=== PATIENT | female | born 1960 | race Caucasian/White ===

== ENCOUNTER 2024-04-08 20:53 | Emergency (ER) | payer OTHER, SELFPAY ==
[2024-04-08 21:24] LABS: Absolute Lymphocytes (CBC) 1.9 K/uL (0.7-4.9); Absolute Monocytes 0.6 K/uL (0.1-1.3); Absolute Neutrophil 6.7 K/uL (1.8-8.0); Basophils % 0.3 % (0-1.3); Hematocrit 39.5 % (36.0-45.0); Lymphocytes % 20.9 % (15.3-44.8); MCH 29.9 pg (27.0-35.0); MCHC 32.9 g/dL (32.0-36.0); MCV 90.8 fL (80-100); MPV 8.9 fL (7.6-11.3); Monocytes % 6.2 % (3.3-12.3); Neutrophils % 72.6 % (41.7-73.7); Platelets 217 thou/uL (152-406); RBC Red Blood Cell Count 4.35 M/uL (3.86-4.86); Red Cell Distribution Width 13.5 % (12.1-15.2)
[2024-04-08 21:28] LABS: PT Prothrombin Time 11.4 SECONDS (9.4-12.5); PTT, Activated Partial Thromb 31.6 SECONDS (24.3-36.9); Protime INR 1.02
[2024-04-08 21:41] LABS: ALT/SGPT 19 U/L (13-56); AST/SGOT 13 U/L (15-37); Albumin 3.9 g/dL (3.4-5.0); Albumin/Globulin Ratio 1.1 (1.1-1.8); Alkaline Phosphatase 97 U/L (45-117); Anion Gap 9.6 mEq/L (5.0-15.0); BUN Blood Urea Nitrogen 29 mg/dL (7-18); Bicarbonate 25 mEq/L (21-32); Bilirubin Direct 0.2 mg/dL (0-0.2); Bilirubin Indirect, Calculated 0.5 mg/dL (0.2-0.8); Bilirubin Total 0.7 mg/dL (0.2-1.0); Creatine Phosphokinase 55 U/L (26-192); Globulin 3.4 g/dL (2.3-3.5); Glomerular Filtration Rate 40 ml/min (=/>90); Glucose Level 160 mg/dL (74-106); Magnesium 1.7 mg/dL (1.6-2.4); Potassium 3.6 mEq/L (3.5-5.1); Protein, Total 7.3 g/dL (6.4-8.2); Sodium Level 141 mEq/L (136-145)
[2024-04-08] MEDS ORDERED: KCL 20 MEQ/100 mL IVPB 200 ML IV ONE (23:19)
[2024-04-08] MEDS ORDERED: MAGNESIUM SULFATE 1 gm IVPB 1 GM/100 ML BAG IV ONE (23:19)
--- NOTE | 2024-04-09 00:55 | EDPHYS ---
Physician Documentation [facility] Name: Yumi Wellington Age: 63 yrs Sex: Female : 1960 Arrival Date: 04/08/2024 Time: 20:53 Bed 16 Private MD: ED Physician Matt Falcon HPI: 04/08 21:09 This 63 yrs old Female presents to ER via Unassigned with complaints of Possible ms3 Overdose, Suicidal Ideation. 21:09 63-year-old female with past medical history of hypertension, depression, diabetes ms3 presents to the emergency department via [facility] status post medication overdose. Patient took 2 mostly full bottles of hydroxyzine and atorvastatin. When asked when she took the medications patient states "recently." Per EMS patient had multiple bouts of emesis prior to their arrival and on arrival. Patient states she was trying to harm herself due to issues with her .. Historical: - Allergies: 22:30 No Known Allergies; dd2 - PMHx: 22:30 Diabetes mellitus; Hypertensive disorder; Depressive disorder; Anxiety; dd2 - Immunization history:: Adult Immunizations unknown. - Infectious Disease History:: Denies. - Social history:: Smoking status: Patient denies any tobacco usage or history of. ROS: 21:09 Constitutional: Negative for fever, and chills. Neck: Negative for injury, pain, and ms3 swelling, Cardiovascular: Negative for chest pain, and palpitations. Respiratory: Negative for shortness of breath, cough, wheezing, and pleuritic chest pain, MS/Extremity: Negative for injury and deformity, Skin: Negative for injury, rash, and discoloration, Neuro: Negative for headache, weakness, numbness, tingling. 21:09 Abdomen/GI: Positive for nausea and vomiting, ms3 21:09 Psych: Positive for depression, suicide gesture, Exam: 21:16 Constitutional: This is a well developed, well nourished patient who is awake, alert, ms3 and in no acute distress. Head/Face: Normocephalic, atraumatic. Chest/axilla: Normal chest wall appearance and motion. Nontender with no deformity. Cardiovascular: Regular rate and rhythm with a normal S1 and S2. No gallops, murmurs, or rubs. Normal PMI, no JVD. No pulse deficits. Respiratory: Lungs have equal breath sounds bilaterally, clear to auscultation and percussion. No rales, rhonchi or wheezes noted. No increased work of breathing, no retractions or nasal flaring. Abdomen/GI: Soft, non-tender, with normal bowel sounds. No distension or tympany. No guarding or rebound. No evidence of tenderness throughout. Skin: Warm, dry with normal turgor. Normal color with no rashes, no lesions, and no evidence of cellulitis. MS/ Extremity: Pulses equal, no cyanosis. Neurovascular intact. Full, normal range of motion. Neuro: Awake and alert, GCS 15, oriented to person, place, time, and situation. Cranial nerves II-XII grossly intact. Motor strength 5/5 in all extremities. Sensory grossly intact. Cerebellar exam normal. Normal gait. 21:16 Psych: Behavior/mood is cooperative, depressed, Affect is calm, Patient having thoughts of suicide. Overdose with hydroxyzine 21:37 ECG was reviewed by the Attending Physician. ms3 22:28 ECG was reviewed by the Attending Physician. ms3 Vital Signs: 20:53 BP 162 / 82; Pulse 81; Pulse Ox 98% ; Weight 77.11 kg; vc1 21:16 BP 162 / 80; Pulse 76; Resp 21; Pulse Ox 98% ; dd2 21:30 BP 143 / 83; Pulse 71; Resp 12; Pulse Ox 100% on R/A; al5 22:00 BP 146 / 90; Pulse 76; Resp 25; Pulse Ox 100% on R/A; al5 22:30 BP 149 / 79; Pulse 68; Resp 14; Pulse Ox 100% ; dd2 22:45 BP 148 / 78; Pulse 66; Resp 17; Pulse Ox 100% on R/A; al5 23:00 BP 135 / 75; Pulse 66; Resp 16; Pulse Ox 99% on R/A; al5 23:15 BP 139 / 84; Pulse 67; Resp 14; Pulse Ox 100% on R/A; al5 23:25 BP 140 / 76; Pulse 67; Resp 16; Pulse Ox 100% on R/A; al5 04/09 00:00 BP 152 / 78; Pulse 74; Resp 15; Pulse Ox 100% on R/A; al5 01:00 BP 152 / 79; Pulse 72; Resp 14; Pulse Ox 100% on R/A; al5 02:00 BP 153 / 74; Pulse 74; Resp 20; Pulse Ox 100% on R/A; al5 03:00 BP 146 / 81; Pulse 71; Resp 15; Temp 98.2; Pulse Ox 100% ; dd2 04:00 BP 123 / 77; Pulse 73; Resp 18; Pulse Ox 100% on R/A; al5 05:00 BP 125 / 76; Pulse 72; Resp 15; Pulse Ox 99% on R/A; al5 06:00 BP 134 / 77; Pulse 76; Resp 17; Pulse Ox 100% on R/A; al5 07:00 BP 138 / 65; Pulse 76; Resp 18; Pulse Ox 100% on R/A; ph 08:00 BP 133 / 63; Pulse 76; Resp 18; Pulse Ox 98% on R/A; ph 12:00 BP 158 / 85; Pulse 74; Resp 18; Temp 97.9; Pulse Ox 99% on R/A; ph / 07:01 BP 152 / 85; Pulse 65; Resp 18; Pulse Ox 98% on R/A; oe 07:07 BP 157 / 79; Pulse 66; Resp 16; Pulse Ox 99% on R/A; mb9 12:40 BP 155 / 70; Pulse 82; Resp 18; Pulse Ox 99% on R/A; mb9 Michael Coma Score: 04/08 22:30 Eye Response: spontaneous(4). Motor Response: obeys commands(6). Verbal Response: dd2 oriented(5). Total: 15. MDM: 21:16 Differential diagnosis: Ingestion/exposure to Hydroxyzine/ Atorvastatin Rhabdomyolysis ms3 vs Arrhythmia. ED course: Poison control contacted by Eladia. Recommend magnesium greater than 2 and potassium greater than 4 secondary to QT prolongation. With Hydoxyzine overdose watch for WRS widening and if QRS greater than 110 recommend sodium bicarb. Patient may also exhibit tachycardia, agitation, seizures. Treatment Benzos. Patient may have GI upset or rhabdo from Atorvastatin overdose. Poison control will call back in 2 hours for update. Case # [id number]. 21:19 Medical Screening Exam initiated ms3 04/09 01:05 Data reviewed: vital signs, nurses notes, lab test result(s), and as a result, I will ms3 transfer. Consideration of Admission/Observation Transfer patient. I considered the following discharge prescriptions or medication management in the emergency department Medications were administered in the Emergency Department. See MAR. Independent interpretation of the following test(s) in the Emergency Department EKG: See my EKG interpretation above register of deeds: rate is 71 beats/min, Rhythm is normal sinus rhythm, with no ectopy, Interpretation: normal rate, normal rhythm. Historians other than the Patient: EMS: [facility]. Counseling: I had a detailed discussion with the patient and/or guardian regarding the historical points, exam findings, and any diagnostic results supporting the discharge/admit diagnosis, lab results, the need to transfer to another facility, [facility] does not immediately have the required specialist. 04/08 21:09 Order name: Acetaminophen; Complete Time: 21:49 ms3 04/08 21:09 Order name: BMP; Complete Time: 21:49 ms3 04/08 21:09 Order name: CBC with Diff; Complete Time: 21:49 ms3 04/08 21:09 Order name: Ethanol; Complete Time: 21:49 ms3 04/08 21:09 Order name: Hepatic Function; Complete Time: 21:49 ms3 04/08 21:09 Order name: Protime (+inr); Complete Time: 21:49 ms3 04/08 21:09 Order name: Ptt, Activated; Complete Time: 21:49 ms3 04/08 21:09 Order name: Salicylate; Complete Time: 22:18 ms3 04/08 21:09 Order name: Urine Drug Screen; Complete Time: 02:16 ms3 04/08 21:09 Order name: CK; Complete Time: 21:49 ms3 04/08 21:23 Order name: Magnesium; Complete Time: 21:49 EDMS 04/09 10:38 Order name: Glucose, Ancillary Testing; Complete Time: 10:38 EDMS 04/08 21:09 Order name: EKG; Complete Time: 21:09 ms3 04/09 10:35 Order name: EKG Electrocardiogram EDMS 04/08 21:09 Order name: EKG - Nurse/Tech; Complete Time: 21:14 ms3 04/08 21:09 Order name: IV Saline Lock; Complete Time: 21:14 ms3 04/08 21:09 Order name: Labs collected and sent; Complete Time: 21:14 ms3 04/08 21:09 Order name: O2 Per Protocol; Complete Time: 21:14 ms3 04/08 21:09 Order name: O2 Sat Monitoring; Complete Time: 21:14 ms3 04/08 21:09 Order name: Suicide Screening ([place]); Complete Time: 22:54 ms3 04/08 21:27 Order name: Seizure Precautions; Complete Time: 22:54 vc1 04/08 21:38 Order name: Misc. Order: repeat EKG at 2230; Complete Time: 22:54 vc1 EC/20 21:37 Rate is 82 beats/min. Rhythm is regular. QRS [place] is Normal. LA interval is normal. QRS ms3 interval is normal. QT interval is prolonged. Clinical impression: Normal ECG and prolonged QT. Interpreted by me. Reviewed by me. 22:28 Rate is 70 beats/min. Rhythm is regular. QRS [place] is Normal. LA interval is normal. QRS ms3 interval is normal. QT interval is normal. Clinical impression: NSR w/ Non-specific ST/T Changes. Interpreted by me. Reviewed by me. Administered Medications: 23:40 Drug: Potassium Chloride IV 40 mEq IV at calculated rate once; administer over 2-4 dd2 hours Route: IV; Rate: calculated rate; Site: left antecubital; 23:55 Follow up: Response: No adverse reaction 04/09 01:31 Follow up: Response: No adverse reaction; IV Status: Completed infusion; IV Intake: dd2 100ml 03:33 Follow up: Response: No adverse reaction; IV Status: Completed infusion; IV Intake: vc1 100ml 04/08 23:40 Drug: Magnesium Sulfate IVPB 1 grams IVPB once over 1 hrs Route: IVPB; Infused Over: 1 dd2 hrs; Site: left antecubital; 23:55 Follow up: Response: No adverse reaction dd2 04/09 00:36 Follow up: Response: No adverse reaction; IV Status: Completed infusion; IV Intake: dd2 100ml Disposition Summary: 04/09/24 00:54 Transfer Ordered Notes: Transfer Location: [facility] ms3 Reason: Higher level of care ms3 Condition: Stable ms3 Problem: new ms3 Symptoms: are unchanged ms3 Accepting Physician: (04/10/24 12:57) mb9 Diagnosis - Suicide attempt ms3 - Depression ms3 Forms: - Medication Reconciliation Form ms3 - SBAR form ms3 Critical care time excluding procedures: 04/08 22:54 Critical care time: Bedside Care: 45 minutes, Consultation: 5 minutes, Family ms3 Intervention: 10 minutes. Total time: 60 minutes Signatures: Dispatcher [employer] EDMS Matt Falcon, DO ms3 Eladia Camara, RN RN vc1 Alesia, Ellen Veras, RN RN mb9 SUSAN DE LA TORRE RN RN dd2 Corrections: (The following items were deleted from the chart) 21: 21:09 ACETAMINOPHEN+C.LAB.BRZ ordered. EDMS EDMS 21: 21:09 BASIC METABOLIC PANEL+C.LAB.BRZ ordered. EDMS EDMS 21: 21:09 CBC+H.LAB.BRZ ordered. EDMS EDMS 21: 21:09 ETHANOL+C.LAB.BRZ ordered. EDMS EDMS 21: 21:09 HEPATIC FUNCTION+C.LAB.BRZ ordered. EDMS EDMS 21: 21:09 PROTIME (+INR)+COAG.LAB.BRZ ordered. EDMS EDMS 21: 21:09 PTT, ACTIVATED+COAG.LAB.BRZ ordered. EDMS EDMS 21: 21:09 SALICYLATE+C.LAB.BRZ ordered. EDMS EDMS 21: 21:09 URINE DRUG SCREEN+UC.LAB.BRZ ordered. EDMS EDMS 21: 21:09 CREATINE PHOSPHOKINASE+C.LAB.BRZ ordered. EDMS EDMS 21:15 21:09 Constitutional: Negative for fever, and chills. Neck: Negative for injury, pain, ms3 and swelling, Cardiovascular: Negative for chest pain, and palpitations. Respiratory: Negative for shortness of breath, cough, wheezing, and pleuritic chest pain, Abdomen/GI: Negative for abdominal pain, nausea, vomiting, diarrhea, and constipation, MS/Extremity: Negative for injury and deformity, Skin: Negative for injury, rash, and discoloration, Neuro: Negative for headache, weakness, numbness, tingling. ms3 : 21:15 MAGNESIUM+C.LAB.BRZ ordered. EDMS EDMS 04/10 12:57 04/09 00:54 Dr [email or web address]
--- NOTE | 2024-04-09 00:55 | ER ---
Nurse's Notes [facility] Name: Yumi Wellington Age: 63 yrs Sex: Female : 1960 Arrival Date: 04/08/2024 Time: 20:53 Bed 16 Private MD: Diagnosis: Suicide attempt;Depression Presentation: 04/08 20:53 Chief complaint: EMS states: Pt took 3 bottles of pills in a suicidal attempt. She was vc1 sitting in her car and called her daughter and said I am done and took the pills while on the phone with her daughter. 20:53 Coronavirus screen: Client denies travel out of the [place] in the last 14 days. At this vc1 time, the client does not indicate any symptoms associated with coronavirus-19. Ebola Screen: Patient negative for fever greater than or equal to 101.5 degrees Fahrenheit, and additional compatible Ebola Virus Disease symptoms Patient denies exposure to infectious person. Patient denies travel to an Ebola-affected area in the 21 days before illness onset. No symptoms or risks identified at this time. Risk Assessment: Do you want to hurt yourself or someone else? Patient reports desire/thoughts of hurting themselves or someone else. Provider notified. Onset of symptoms was April 08, 2024 at 20:30. 20:53 Method Of Arrival: EMS: [facility] vc1 20:53 Acuity: RAMONA 2 vc1 20:53 Note Pt is missing between 100 and 240 pills from her hydroxyzine 50 mg bottle and 21 vc1 pills from her atorvastatin 20 mg bottle. 04/09 04:17 Initial Sepsis Screen: Does the patient meet any 2 criteria? No. Patient's initial al5 sepsis screen is negative. Does the patient have a suspected source of infection? No. Patient's initial sepsis screen is negative. Historical: - Allergies: 04/08 22:30 No Known Allergies; dd2 - PMHx: 22:30 Diabetes mellitus; Hypertensive disorder; Depressive disorder; Anxiety; dd2 - Immunization history:: Adult Immunizations unknown. - Infectious Disease History:: Denies. - Social history:: Smoking status: Patient denies any tobacco usage or history of. Screenin:30 [facility] ED Fall Risk Assessment (Adult) History of falling in the last 3 months, dd2 including since admission No falls in past 3 months (0 pts) Confusion or Disorientation No (0 pts) Intoxicated or Sedated Yes (3 pts) Impaired Gait No (0 pts) Mobility Assist Device Used No (0 pt) Altered Elimination No (0 pt) Score/Fall Risk Level 3 or more points = High Risk Oriented to surroundings, Maintained a safe environment, Educated pt \\T\\ family on fall prevention, incl call for assistance when getting out of bed, Assessed \\T\\ reinforced patient's understanding of fall precautions, Hourly rounding (assess needs \\T\\ fall precautionary measures) done. Abuse screen: Denies threats or abuse. Nutritional screening: No deficits noted. Tuberculosis screening: No symptoms or risk factors identified. Assessment: 21:07 General: Poison control case # [id number] With prolonged Qtc keep magnesium >2 and vc1 potassium >4. If QRS is >110 give Sodium Bicarb. The atorvastatin may cause GI upset and Rhabdo. The hydroxyzine may cause tachycardia, agitation, psychosis, hallucinations, seizures, N\\T\\V. Treat with Benzos. . 21:10 Reassessment: pt purse containing Iphone, 2 wallets totaling $72.42 and 301.82, [facility] dd2 debit and credit cards, drivers license, and glasses (inventory checklist in packet) given to daughter Jagruti Wellington at pts request. 22:27 General: Appears FLAT AFFECT. Behavior is cooperative, quiet. Pain: Denies pain. Neuro: dd2 Level of Consciousness is obeys commands, lethargic, Oriented to person, place, time, situation, Venetian Blind Tape Cutter are equal bilaterally Speech is normal. Cardiovascular: Denies chest pain, Heart tones S1 S2 Patient's skin is warm and dry. Rhythm is sinus rhythm. Respiratory: Airway is patent Respiratory effort is even, unlabored, Respiratory pattern is regular, symmetrical, Breath sounds are clear bilaterally. GI: Pt is actively vomiting undigested food, Bowel sounds present X 4 quads. Abd is soft and non tender X 4 quads. : No deficits noted. No signs and/or symptoms were reported regarding the genitourinary system. EENT: No deficits noted. No signs and/or symptoms were reported regarding the EENT system. Derm: No deficits noted. No signs and/or symptoms reported regarding the dermatologic system. Musculoskeletal: No deficits noted. No signs and/or symptoms reported regarding the musculoskeletal system. 04/09 04:03 Reassessment: [facility] dd2 04:15 General: Appears in no apparent distress. comfortable, Behavior is calm, cooperative. al5 General: patient resting comfortably at this time. able to answer questions. Pain: Denies pain. Neuro: Level of Consciousness is alert, obeys commands, Oriented to person, place, time, situation. Cardiovascular: Capillary refill < 3 seconds Patient's skin is warm and dry. Respiratory: Airway is patent Respiratory effort is even, unlabored, Respiratory pattern is regular, symmetrical. GI: Abdomen is flat, non-distended. : No signs and/or symptoms were reported regarding the genitourinary system. EENT: No signs and/or symptoms were reported regarding the EENT system. Derm: Skin is intact, Skin is pink, warm \\T\\ dry. normal. Musculoskeletal: No signs and/or symptoms reported regarding the musculoskeletal system. 05:57 Reassessment: Patient appears in no apparent distress at this time. No changes from al5 previously documented assessment. Patient and/or family updated on plan of care and expected duration. Pain level reassessed. Patient is alert, oriented x 3, equal unlabored respirations, skin warm/dry/pink. 06:48 Reassessment: Patient appears in no apparent distress at this time. No changes from al5 previously documented assessment. Patient and/or family updated on plan of care and expected duration. Pain level reassessed. Patient is alert, oriented x 3, equal unlabored respirations, skin warm/dry/pink. 07:20 Reassessment: Patient appears in no apparent distress at this time. Patient and/or ph family updated on plan of care and expected duration. Pain level reassessed. Patient is alert, oriented x 3, equal unlabored respirations, skin warm/dry/pink. Pt resting comfortably, awaiting transfer to psychiatric facility, [facility]. 10:22 Reassessment: Patient appears in no apparent distress at this time. Nurse to nurse done ph w/ NEGAR Cotto at [facility]. 12:30 Reassessment: Patient appears in no apparent distress at this time. Patient and/or ph family updated on plan of care and expected duration. Pain level reassessed. Pt resting comfortably w/ eyes closed, even and unlabored respirations. 17:00 General: Assumed care of patient at this time. Pt denies SI at this time, but states cm10 that the thought still comes and goes. Updated on plan of care. Pt made aware that [facility] will be coming to see her. Pt with visitor. Sitter at bedside.. 17:29 General: [place] AT BEDSIDE AT THIS TIME.. cm10 19:05 Reassessment: No changes from previously documented assessment. Patient and/or family rg5 updated on plan of care and expected duration. Pain level reassessed. Patient is alert, oriented x 3, equal unlabored respirations, skin warm/dry/pink. 22:00 Reassessment: No changes from previously documented assessment. Patient and/or family rg5 updated on plan of care and expected duration. Pain level reassessed. 04/10 00:00 Reassessment: No changes from previously documented assessment. Patient and/or family rg5 updated on plan of care and expected duration. Pain level reassessed. 02:00 Reassessment: No changes from previously documented assessment. Patient and/or family rg5 updated on plan of care and expected duration. Pain level reassessed. 04:36 Reassessment: No changes from previously documented assessment. Patient is alert, rg5 oriented x 3, equal unlabored respirations, skin warm/dry/pink. General:. Respiratory: Airway is patent Respiratory effort is even, unlabored, Respiratory pattern is regular, symmetrical. 06:31 Reassessment: No changes from previously documented assessment. Patient and/or family rg5 updated on plan of care and expected duration. Pain level reassessed. Respiratory: Airway is patent Respiratory effort is even, unlabored, Respiratory pattern is regular, symmetrical. 07:00 Reassessment: SI precautions in place. Sitter at bedside. Pt AAOx4, Respirations are mb9 even and unlabored. 07:11 Reassessment: Pt accompanied to shower with sitter. mb9 08:00 Reassessment: Patient is alert, oriented x 3, equal unlabored respirations, skin mb9 warm/dry/pink. Si precautions in place, Sitter at bedside. 09:00 Reassessment: Patient appears in no apparent distress at this time. No changes from mb9 previously documented assessment. Patient and/or family updated on plan of care and expected duration. Pain level reassessed. Si precautions in place, Sitter at bedside. 10:00 Reassessment: Patient is alert, oriented x 3, equal unlabored respirations, skin mb9 warm/dry/pink. Si precautions in place, Sitter at bedside. 11:00 Reassessment: Patient is alert, oriented x 3, equal unlabored respirations, skin mb9 warm/dry/pink. Si precautions in place, Sitter at bedside. 11:50 Reassessment: Nurse to nurse done w/ Lametria at [facility]. ph 12:15 Reassessment: pt refusing to go to [facility]. Verbal reassurance given. Educated mb9 pt about NICOLASA process. Pt crying and anxious. Overdose: 04/08 20:59 [place] Suicide Severity Screening: "In the past month, have you wished you were dd2 or wished you could go to sleep and not wake up?" Patient responds "yes." Based off client's responses, additional C-SSRS screening questions required. "In the past month, have you actually had any thoughts of killing yourself?" Patient responds "yes." Based off client's responses, additional C-SSRS screening questions required. "In your lifetime, have you ever done anything, started to do anything, or prepared to do anything to end your life?" Patient responds "yes." Patient reports suicidal intent within 3 past months. Patient took Pt took approx between 100-120 hydroxizine and atorvastatin. Overdose occurred 1-2 hours ago. Vital Signs: 20:53 BP 162 / 82; Pulse 81; Pulse Ox 98% ; Weight 77.11 kg; vc1 21:16 BP 162 / 80; Pulse 76; Resp 21; Pulse Ox 98% ; dd2 21:30 BP 143 / 83; Pulse 71; Resp 12; Pulse Ox 100% on R/A; al5 22:00 BP 146 / 90; Pulse 76; Resp 25; Pulse Ox 100% on R/A; al5 22:30 BP 149 / 79; Pulse 68; Resp 14; Pulse Ox 100% ; dd2 22:45 BP 148 / 78; Pulse 66; Resp 17; Pulse Ox 100% on R/A; al5 23:00 BP 135 / 75; Pulse 66; Resp 16; Pulse Ox 99% on R/A; al5 23:15 BP 139 / 84; Pulse 67; Resp 14; Pulse Ox 100% on R/A; al5 23:25 BP 140 / 76; Pulse 67; Resp 16; Pulse Ox 100% on R/A; al5 04/09 00:00 BP 152 / 78; Pulse 74; Resp 15; Pulse Ox 100% on R/A; al5 01:00 BP 152 / 79; Pulse 72; Resp 14; Pulse Ox 100% on R/A; al5 02:00 BP 153 / 74; Pulse 74; Resp 20; Pulse Ox 100% on R/A; al5 03:00 BP 146 / 81; Pulse 71; Resp 15; Temp 98.2; Pulse Ox 100% ; dd2 04:00 BP 123 / 77; Pulse 73; Resp 18; Pulse Ox 100% on R/A; al5 05:00 BP 125 / 76; Pulse 72; Resp 15; Pulse Ox 99% on R/A; al5 06:00 BP 134 / 77; Pulse 76; Resp 17; Pulse Ox 100% on R/A; al5 07:00 BP 138 / 65; Pulse 76; Resp 18; Pulse Ox 100% on R/A; ph 08:00 BP 133 / 63; Pulse 76; Resp 18; Pulse Ox 98% on R/A; ph 12:00 BP 158 / 85; Pulse 74; Resp 18; Temp 97.9; Pulse Ox 99% on R/A; ph 10 07:01 BP 152 / 85; Pulse 65; Resp 18; Pulse Ox 98% on R/A; oe 07:07 BP 157 / 79; Pulse 66; Resp 16; Pulse Ox 99% on R/A; mb9 12:40 BP 155 / 70; Pulse 82; Resp 18; Pulse Ox 99% on R/A; mb9 Michael Coma Score: 04/08 22:30 Eye Response: spontaneous(4). Motor Response: obeys commands(6). Verbal Response: dd2 oriented(5). Total: 15. ED Course: 20:56 Patient arrived in ED. jj6 20:58 Matt Falcon DO is Attending Physician. ms3 21:10 Safety Checks: The door is open or patient has been placed in a hallway bed/chair. dd2 Items have not been removed from patient due to or because: Pt unstable at this time and requires monitoring equipment and IV lines Sitter present at this time. 21:14 CK Sent. dd2 21:14 Acetaminophen Sent. dd2 21:14 BMP Sent. dd2 21:14 CBC with Diff Sent. dd2 21:15 Ethanol Sent. dd2 21:15 Hepatic Function Sent. dd2 21:15 Protime (+inr) Sent. dd2 21:15 Ptt, Activated Sent. dd2 21:15 Salicylate Sent. dd2 21:15 Initial lab(s) drawn, by me, sent to lab. EKG done, by ED staff, reviewed by Matt Falcon DO. Maintain EMS IV. Dressing intact. Good blood return noted. Site clean \\T\\ dry. Gauge \\T\\ site: 20g LAC. Flushed with 10 mL NS. Patient maintains SpO2 saturation greater than 95% on room air. 21:15 Client placed on continuous cardiac and pulse oximetry monitoring. NIBP monitoring dd2 applied. fabrication technician on. Door closed. Noise minimized. Warm blanket given. Pillow given. Verbal reassurance given. Patient is placed in psych hold. 21:20 Triage completed. vc1 22:17 SUSAN DE LA TORRE RN is Primary Nurse. dd2 22:26 EKG done, by ED staff, reviewed by Matt Falcon DO. dd2 22:30 No provider procedures requiring assistance completed. dd2 22:30 Patient has correct armband on for positive identification. Placed in gown. Bed in low dd2 position. Call light in reach. Side rails up X2. Valuables Given to family. Seizure precautions initiated. 22:33 Daughter Jagruti Wellington wants to be notified of any changes, phone number given cc6 [phone]. 04/09 04:00 Sent documents to [facility] and [facility]. vk 04:17 Arm band placed on right wrist. Patient placed in the treatment room, on a stretcher. al5 04:17 Provided Education on: need for transfer, medication safety. al5 07:50 faxed chart to [facility]. bd 08:20 faxed chart to [facility]. bd 08:23 Primary Nurse role handed off by SUSAN DE LA TORRE RN bd 08:52 Ayleen Guerrero, RN is Primary Nurse. ph 16:52 Primary Nurse role handed off by Ayleen Guerrero, RN cm10 16:52 Annita Greenfield, RN is Primary Nurse. cm10 19:18 Report given to NEGAR Magdaleno. cm10 20:46 Taqueria Sethi, RN is Primary Nurse. rg5 04/10 07:00 Report received from NEGAR Meng. mb9 09:38 re faxed chart to [facility]. 11:53 pt accepted in transfer to [facility] by dr Cline admin approval given by Meghan Degroot. 12:40 IV discontinued, intact, bleeding controlled, No redness/swelling at site. Pressure mb9 dressing applied. Administered Medications: 04/08 23:40 Drug: Potassium Chloride IV 40 mEq IV at calculated rate once; administer over 2-4 dd2 hours Route: IV; Rate: calculated rate; Site: left antecubital; 23:55 Follow up: Response: No adverse reaction dd2 04/09 01:31 Follow up: Response: No adverse reaction; IV Status: Completed infusion; IV Intake: dd2 100ml 03:33 Follow up: Response: No adverse reaction; IV Status: Completed infusion; IV Intake: vc1 100ml 04/08 23:40 Drug: Magnesium Sulfate IVPB 1 grams IVPB once over 1 hrs Route: IVPB; Infused Over: 1 dd2 hrs; Site: left antecubital; 23:55 Follow up: Response: No adverse reaction dd2 04/09 00:36 Follow up: Response: No adverse reaction; IV Status: Completed infusion; IV Intake: dd2 100ml Medication: 04/08 22:30 VIS not applicable for this client. dd2 Intake: 04/09 00:36 IV: 100ml; Total: 100ml. dd2 01:31 IV: 100ml; Total: 200ml. dd2 03:33 IV: 100ml; Total: 300ml. vc1 Outcome: 00:54 ER care complete, transfer ordered by ms3 04/10 12:46 Transferred by ground EMS Transfer form completed. Note: [facility] mb9 Condition: stable Instructed on the need for transfer, 12:57 Patient left the ED. mb9 Signatures: Corina Carreon Patricia, RN RN Dominick Edwards Marcus, DO DO ms3 Gilma Ugarte jj6 Eladia Camara RN RN vc1 Ellen Dumas RN RN mb9 Annita Greenfield RN RN cm10 Maribel Merritt Rommel, RN RN rg5 Martha Campbell RN RN al5 Krystle Last cc6 SUSAN DE LA TORRE RN RN dd2 Corrections: (The following items were deleted from the chart) 04/09 04:30 03:59 BP 146 / 81; Pulse 71bpm; Resp 15bpm; Pulse Ox 100%; Temp 98.2F; dd2 dd2 10:24 10:22 Reassessment: Patient appears in no apparent distress at this time. ph ph
[2024-04-09 02:09] LABS: Barbiturates NEGATIVE (NEGATIVE); Benzodiazepines NEGATIVE (NEGATIVE); Cocaine NEGATIVE (NEGATIVE); METHAMPHETAM NEGATIVE (NEGATIVE); Methadone NEGATIVE (NEGATIVE); Opiates NEGATIVE (NEGATIVE); Phencyclidine NEGATIVE (NEGATIVE); THC Cannibis NEGATIVE (NEGATIVE)
--- NOTE | 2024-04-10 12:55 | EKG ---
Test Date: 2024-04-08 Test Time: 22:25:07 Assistant Refinery Operator: ALDO MEASUREMENT RESULTS: Intervals: Rate: 70 KS: 176 QRSD: 96 QT: 334 QTc: 360 [place]: P: 34 KS: 176 QRS: -6 T: 85 INTERPRETIVE STATEMENTS: Normal sinus rhythm Nonspecific T wave abnormality Abnormal ECG Compared to ECG 04/08/2024 21:07:21 T-wave abnormality now present Prolonged QT interval no longer present Electronically Signed On 04-10-24 12:50:49 CDT by Rishabh Vargas
--- NOTE | 2024-04-10 12:55 | EKG ---
Test Date: 2024-04-08 Test Time: 21:07:21 Huc Ob: ALDO MEASUREMENT RESULTS: Intervals: Rate: 82 MT: 186 QRSD: 96 QT: 448 QTc: 523 [place]: P: 63 MT: 186 QRS: 56 T: 89 INTERPRETIVE STATEMENTS: Normal sinus rhythm Prolonged QT Abnormal ECG No previous ECG available for comparison Electronically Signed On 04-10-24 12:50:50 CDT by Rishabh Vargas
[2024-04-10 14:39] VITALS: TEMP 97.9
[2024-04-10 14:42] VITALS: O2SAT 99
[2024-04-10 14:43] VITALS: BP 155/70
== END 2024-04-10 12:57 ==
LOC: ER 20:53 → EDSEX 20:53 → ER 04-10 12:57
DX: T43.592A Poisoning by other antipsychotics and neuroleptics, intentional self-harm, initial encounter (principal); F32.A Depression, unspecified
CPT/HCPCS: 36415; 80048; 80076; 80143; 80179; 82077; 82550; 83735; 85025; 85610; 85730; 93005; J3475; J3480